=== PATIENT | female | born 1955 | race Hispanic/Latino ===

== ENCOUNTER 2018-10-18 13:20 | Inpatient (IN) | payer MEDICAID ==
[~2018-10-18] VITALS: Ht 152.4 cm; Wt 75.9 kg
[2018-10-18 14:07] LABS: ALBUMIN 2.5 g/dL (3.5-5.0); BILIRUBIN,TOTAL 0.9 mg/dL (0.2-1.0); CREATININE 1.6 mg/dL (0.5-1.5); POTASSIUM 4.7 mmol/L (3.5-5.1); TOTAL PROTEIN, SERUM 6.5 g/dL (6.0-8.3)
[2018-10-18 14:10] LABS: BASOPHILS % (AUTO) 0.3 % (0.0-5.0); LYMPHOCYTES % (AUTO) 2.6 % (21.0-51.0); MEAN CORPUSCULAR HGB CONC 34.1 g/dL (32.0-36.0); MEAN CORPUSCULAR VOLUME 87.8 fL (79-99); MONOCYTES % (AUTO) 2.6 % (3.0-13.0); NEUTROPHILS % (AUTO) 94.5 % (40.0-77.0); PLATELET COUNT (AUTO) 118 K/uL (130-400); RED BLOOD CELL COUNT(AUTO) 3.53 MIL/uL (4.00-5.50); RED CELL DISTRIBUTION WIDTH 13.2 % (11.0-15.5); WHITE BLOOD COUNT (AUTO) 2.5 K/uL (4.8-10.8)
[2018-10-18] MEDS ORDERED: SODIUM CHLORIDE 0.9% 1000ML 1,000 ML IV ONE ×3 (14:21→17:43)
[2018-10-18] MEDS ORDERED: ACETAMINOPHEN 650 MG SUPPOSITORY RC ONE (14:37)
[2018-10-18 14:51] LABS: BAND NEUTROPHILS % (MANUAL) 13 % (0-2); BASOPHILS % (MANUAL) 1 % (0-2); LYMPHOCYTES % (MANUAL) 4 % (22-44); MONOCYTES % (MANUAL) 1 % (2-9); SEGMENTED NEUTROPHILS % 81 % (40-70)
[2018-10-18 14:52] LABS: PLATELET MORPHOLOGY COMMENT SLIGHTLY DECREASED
[2018-10-18 15:26] LABS: APPEARANCE,URINE Turbid (CLEAR); BILIRUBIN,URINE Negative (NEGATIVE); COLOR,URINE Yellow (YELLOW); GLUCOSE, URINE (UA) Negative (NEGATIVE); KETONES,URINE Negative (NEGATIVE); LEUKOCYTE ESTERASE ,URINE Negative (NEGATIVE); NITRATE,URINE Negative (NEGATIVE); OCCULT BLOOD,URINE Negative (NEGATIVE); PROTEIN,URINE POS 1+ mg/dL (NEGATIVE)
[2018-10-18 16:02] LABS: RBC,URINE None Seen /HPF (0-1); WBC,URINE 0-1 /HPF (0-1)
[2018-10-18 16:03] LABS: AMORPHOUS SEDIMENT,UR Many /LPF (None Seen); BACTERIA,URINE Moderate /HPF (None Seen); SQUAMOUS EPITHELIAL CELL,UR 0-2 /HPF (0-2)
[2018-10-18] MEDS: SODIUM CHLORIDE 0.9% 1000ML 1,000 ML IV SCH (16:37)
[2018-10-18] MEDS ORDERED: HYDRALAZINE HCL 20 MG/ML VIAL IV PRN (16:45)
[2018-10-18] MEDS ORDERED: ACETAMINOPHEN 325 MG TAB PO PRN (16:45)
[2018-10-18] MEDS ORDERED: ONDANSETRON HCL 4 MG/2 ML VIAL IV PRN (16:45)
[2018-10-18 17:22] LABS: AMPHET/METH SCREEN,URINE NEGATIVE (NEGATIVE); BARBITURATE SCREEN, URINE NEGATIVE (NEGATIVE); BENZODIAZEPINES SCREEN,URINE NEGATIVE (NEGATIVE); CANNABINOID SCREEN,URINE NEGATIVE (NEGATIVE); COCAINE SCREEN,URINE NEGATIVE (NEGATIVE); OPIATE SCREEN,URINE NEGATIVE (NEGATIVE); PHENCYCLIDINE SCREEN,URINE NEGATIVE (NEGATIVE)
[2018-10-18 17:24] LABS: HEMOGLOBIN A1C 7.8 % (4.0-6.0)
[2018-10-18] MEDS ORDERED: CEFTRIAXONE SODIUM 1 GM ONE (17:26)
[2018-10-18 17:28] LABS: MAGNESIUM 1.5 mg/dL (1.80-2.40)
[2018-10-18] MEDS ORDERED: SODIUM CHLORIDE 0.9% 100 ML IV ONE (17:28)
[2018-10-18] MEDS ORDERED: MAGNESIUM 2GM PREMIX 50ML 50 ML IV ONE (17:43)
[2018-10-18] MEDS ORDERED: POTASSIUM BICARB/CIT AC 25 MEQ TABLET.EFF ONE (18:10)
[2018-10-18] MEDS ORDERED: ACETAMINOPHEN 325 MG TAB ONE (19:50)
[2018-10-18 20:28] VITALS: BP 107/67
[2018-10-18] MEDS ORDERED: DEXTROSE 50%-WATER 50 ML DISP.SYRIN IV ONE (20:50)
--- NOTE | 2018-10-18 20:54 | NUR ---
Pt. appears lethargic and blood sugar checked 46 and D50 IV given
[2018-10-18] MEDS ORDERED: CEFTRIAXONE SODIUM 1 GM IV SCH (21:00)
[2018-10-18] MEDS ORDERED: MAGNESIUM 2GM PREMIX 50ML 50 ML IV SCH (21:00)
--- NOTE | 2018-10-18 21:27 | NUR ---
Rechecked blood sugar =167 and MOLDER FOAM RUBBER FRANCOISE came and saw the pt.
[2018-10-18] MEDS ORDERED: DEXTROSE 50%-WATER 50 ML DISP.SYRIN IV PRN (21:45)
[2018-10-18] MEDS ORDERED: GLUCAGON 1MG KIT 1 MG ML IM PRN (21:45)
[2018-10-18] MEDS ORDERED: LISI30TA4 PO (23:39)
[2018-10-18] MEDS ORDERED: PRAV20TA4 PO (23:39)
[2018-10-18] MEDS ORDERED: LEVO75TA10 PO (23:39)
[2018-10-19] VITALS (8 sets, daily range): BP systolic 83–116; BP diastolic 50–77
[2018-10-19] MEDS: SODIUM CHLORIDE 0.9% 1000ML 1,000 ML IV SCH ×2 (02:37→14:59)
[2018-10-19] MEDS: ACETAMINOPHEN 325 MG TAB PO PRN ×2 (04:21→11:59)
--- NOTE | 2018-10-19 05:24 | NUR ---
ESAU Petty was called and notified regarding pt low BP 83/54mmHg.Received new ordfer
[2018-10-19] MEDS ORDERED: SODIUM CHLORIDE 0.9% 500ML 500 ML IV SCH (05:30)
--- NOTE | 2018-10-19 06:36 | NUR ---
Rechecked b/s was Rechecked after D50 iv given was 182
--- NOTE | 2018-10-19 07:50 | NUR ---
ASSESSMENT ENCOUNTERED PT A&OX3, CALM COOPERATIVE AND DOES NOT APPEAR TO BE IN ANY DISTRESS NOR ANY NEURO DEFICITS PRESENT. PT DENIES PAIN, SOB, NAUSEA BUT DOES C/O GENERALIZED BODY WEAKNESS, INTERMITTENT CHILLS AND FEVER. PT TO REMAIN IN BEDREST. PT IS ABLE TO TOLERATE FOODS, FLUIDS AND MEDICATIONS WITH NO THROAT CLEARING OR COUGH. CALL LIGHT WITHIN REACH, FAMILY AT BEDSIDE.
[2018-10-19] MEDS ORDERED: VANCOMYCIN PROTOCOL PER PHARMACY IV SCH (11:30)
[2018-10-19] MEDS ORDERED: SODIUM CHLORIDE 0.9% 1000ML 1,000 ML IV SCH (11:30)
[2018-10-19] MEDS: MEROPENEM 1 GM VIAL IVP SCH ×2 (11:58→20:53)
[2018-10-19] MEDS: VANCOMYCIN 1GM+NS 250ML 250 ML IV SCH (11:58)
--- NOTE | 2018-10-19 14:50 | NUR ---
[facility] met with pt and Geoffrey [phone]. Pt reports prior to admission she was independent of all ADLS, no DME or HH. Pt states she is taking chemo for breast cancer with Dr Nogueira and is very sick after each treatment. Pt states she may need more help after discharge. Pt states she knows what her option is if she stops treatment, but states she feels pretty bad after treatments. SW provided emotional support. [place]. CM to follow and assist as needed Addendum: 10/19/18 at 1454 by SUNITA LUNA Amended: Links added.
[2018-10-19] MEDS: FAMOTIDINE/PF 20 MG/2 ML VIAL IV SCH (14:51)
[2018-10-19] MEDS: ENOXAPARIN SODIUM 40 MG/0.4 ML SYRINGE SQ SCH (14:58)
[2018-10-20] VITALS: BP 112/63
[2018-10-20] MEDS: SODIUM CHLORIDE 0.9% 1000ML 1,000 ML IV SCH ×2 (01:00→22:27)
[2018-10-20 04:00] VITALS: BP 102/60
[2018-10-20] MEDS: MEROPENEM 1 GM VIAL IVP SCH ×3 (04:02→17:43)
[2018-10-20 07:00] VITALS: BP 90/58
[2018-10-20] MEDS: ENOXAPARIN SODIUM 40 MG/0.4 ML SYRINGE SQ SCH (09:37)
[2018-10-20] MEDS: FAMOTIDINE/PF 20 MG/2 ML VIAL IV SCH (09:37)
[2018-10-20 10:50] VITALS: BP 124/77
[2018-10-20] MEDS: VANCOMYCIN 1GM+NS 250ML 250 ML IV SCH (10:51)
[2018-10-20] MEDS ORDERED: FUROSEMIDE 10 MG/ML 4ML VIAL IV SCH (11:00)
[2018-10-20] MEDS ORDERED: MORPHINE SULFATE 2 MG/ML 1ML SYG IVP ONE (11:00)
--- NOTE | 2018-10-20 11:00 | NUR ---
NOTIFIED BY LIBRARY SALES CONSULTANT PT'S HEART RATE AT 140-150, SINUS TACH. EKG RAN TO CONFIRM RHYTHM. PT BP AT THE TIME 156/99, O2 SAT 100% 2L NC, PT STATES SHE FELT CHILLS. TEMP AT THE TIME 98.5. DR. DAVE MADE AWARE, NEW ORDERS RECEIVED THAT WERE CARRIED OUT. REFER TO [facility] FOR INTERVENTION.
[2018-10-20] MEDS: METOPROLOL TARTRATE 1 MG/ML 5ML VIAL IV SCH ×3 (11:17→23:00)
--- NOTE | 2018-10-20 12:00 | NUR ---
ROUNDS DR. BROWN IN TO SEE PATIENT. MD UPDATED ON STATUS AND NEW ORDERS. FOLLOW-UP ON METOPROLOL 5MG IV ADMINISTRATION: HR ST 120s. NO FEVER NOTED, PT STATES SHE FEELS BETTER AT THIS TIME. PT'S DAUGHTER WITH CONCERNS REGARDING CHEMOTHERAPY AND WHAT STAGE IS PATIENT'S CANCER AT. I INFORMED HER THAT WHILE PATIENT IS IN HOSPITAL, SHE WILL NOT BE RECEIVING CHEMOTHERAPY. SHE WILL NEED TO FOLLOW UP WITH DR. BROWN UPON DISCHARGE TO DISCUSS FURTHER POC REGARDING HER CHEMOTHERAPY. BOTH PATIENT AND DAUGHTER VOICED AGREEMENT.
[2018-10-20 12:53] LABS: EOSINOPHILS % (AUTO) 0.4 % (0.0-8.0); HEMATOCRIT 27.2 % (36-48); LYMPHOCYTES % (AUTO) 6.9 % (21.0-51.0); MEAN CORPUSCULAR HEMOGLOBIN 30.3 pg (27.0-33.0); MEAN CORPUSCULAR HGB CONC 33.7 g/dL (32.0-36.0); MEAN CORPUSCULAR VOLUME 89.9 fL (79-99); MONOCYTES % (AUTO) 8.3 % (3.0-13.0); NEUTROPHILS % (AUTO) 83.4 % (40.0-77.0); PLATELET COUNT (AUTO) 119 K/uL (130-400); RED BLOOD CELL COUNT(AUTO) 3.02 MIL/uL (4.00-5.50); RED CELL DISTRIBUTION WIDTH 13.9 % (11.0-15.5); WHITE BLOOD COUNT (AUTO) 2.1 K/uL (4.8-10.8)
[2018-10-20 12:57] LABS: ALBUMIN 1.8 g/dL (3.5-5.0); CREATININE 1.8 mg/dL (0.5-1.5); MAGNESIUM 1.8 mg/dL (1.80-2.40); PHOSPHORUS 2.2 mg/dL (2.5-4.9); POTASSIUM 4.4 mmol/L (3.5-5.1)
[2018-10-20 13:14] LABS: BAND NEUTROPHILS % (MANUAL) 6 % (0-2); EOSINOPHILS % (MANUAL) 1 % (1-6); LYMPHOCYTES % (MANUAL) 8 % (22-44); MAN.DIFF COMMENT-IMPRESSION MANUAL DIFFERENTIAL; MONOCYTES % (MANUAL) 13 % (2-9); PLATELET MORPHOLOGY COMMENT SLIGHTLY DECREASED; SEGMENTED NEUTROPHILS % 72 % (40-70)
--- NOTE | 2018-10-20 13:15 | NUR ---
RD Notification Pt admitted for Hypoglycemia. Pt current BG 324. Pt with no noted complaint of GI distress. Pt with good PO intake at 100%. Pt monitored labs: Glu 324, Cl 89, Cr 1.6, BUN 31, GFR 35, Ca 7.7, AST 304, ALT 278, Alk 29, Alb 2.5. RD to continue to monitor. Please notify RD as additional nutrition concerns arise. Thank you. Addendum: 10/20/18 at [address] RD Amended: Links added.
[2018-10-20 16:00] VITALS: BP 113/62
[2018-10-20 19:07] VITALS: BP 93/62
[2018-10-20] MEDS: DOXYCYCLINE 100MG+NS 250ML 250 ML IV SCH (22:27)
[2018-10-21 00:07] VITALS: BP 107/65
[2018-10-21] MEDS: ACETAMINOPHEN 325 MG TAB PO PRN (02:40)
[2018-10-21] MEDS: MEROPENEM 1 GM VIAL IVP SCH ×3 (03:30→20:29)
[2018-10-21 04:39] VITALS: BP 100/59
[2018-10-21 04:52] LABS: BASOPHILS % (AUTO) 0.9 % (0.0-5.0); EOSINOPHILS % (AUTO) 0.2 % (0.0-8.0); HEMATOCRIT 26.4 % (36-48); LYMPHOCYTES % (AUTO) 17.8 % (21.0-51.0); MEAN CORPUSCULAR HEMOGLOBIN 29.6 pg (27.0-33.0); MEAN CORPUSCULAR HGB CONC 33.3 g/dL (32.0-36.0); MEAN CORPUSCULAR VOLUME 88.9 fL (79-99); NEUTROPHILS % (AUTO) 74.1 % (40.0-77.0); NUCLEATED RED BLOOD CELLS 0.1 % (0.0-0.19); PLATELET COUNT (AUTO) 138 K/uL (130-400); RED BLOOD CELL COUNT(AUTO) 2.97 MIL/uL (4.00-5.50); RED CELL DISTRIBUTION WIDTH 14.3 % (11.0-15.5)
[2018-10-21] MEDS: METOPROLOL TARTRATE 1 MG/ML 5ML VIAL IV SCH ×4 (05:00→23:47)
[2018-10-21 05:04] LABS: B-TYPE NATRIURETIC PEPTIDE 149 pg/mL (0-100)
[2018-10-21 05:24] LABS: ALBUMIN 1.6 g/dL (3.5-5.0); BILIRUBIN,TOTAL 0.9 mg/dL (0.2-1.0); TOTAL PROTEIN, SERUM 4.8 g/dL (6.0-8.3)
[2018-10-21] MEDS: SODIUM CHLORIDE 0.9% 1000ML 1,000 ML IV SCH ×2 (06:19→16:19)
[2018-10-21 07:45] VITALS: BP 94/60
[2018-10-21] MEDS ORDERED: DIATR MEGLU/DIATRIZOATE SODIUM 30 ML BOTTLE ONE (09:37)
[2018-10-21] MEDS: DOXYCYCLINE 100MG+NS 250ML 250 ML IV SCH ×2 (10:39→20:29)
[2018-10-21] MEDS: ENOXAPARIN SODIUM 40 MG/0.4 ML SYRINGE SQ SCH (10:39)
[2018-10-21] MEDS: FAMOTIDINE/PF 20 MG/2 ML VIAL IV SCH (10:39)
[2018-10-21 11:45] VITALS: BP 105/69
[2018-10-21] MEDS: VANCOMYCIN 1GM+NS 250ML 250 ML IV SCH ×2 (14:10→16:55)
--- NOTE | 2018-10-21 15:14 | NUR ---
Dr. Holliday rounding at bedside. Bladder scan done showing 872ml of urine. New VO to insert lee cath for urine retention.
[2018-10-21 16:00] VITALS: BP 130/82
[2018-10-21] MEDS ORDERED: COMPOUND IV REFRIGERATED 1 EACH IVSOLN MISC PRN (18:00)
[2018-10-21] MEDS: VANCOMYCIN 1.25 GM in SODIUM CHLORIDE 0.9% 250 ML IV SCH (18:09)
[2018-10-21 18:35] LABS: CREATININE,URINE RANDOM 39 mg/dL (30-135); SODIUM,URINE RANDOM 16 mmol/l (40-220)
--- NOTE | 2018-10-21 19:40 | NUR ---
Received report pt is going to medical surgical floor.HR in the 112.Plaxced call to ESAU Lorenzana and updated him with pt. HR and pt is on Lopressor IV and will be going to medical floor with no monitor.He ordered to hold transfer for now.Transportation Equipment Painter was called and updated with new order
[2018-10-21] MEDS: INSULIN GLARGINE 100 UNITS/ML 10 ML VIAL SQ SCH (22:12)
--- NOTE | 2018-10-21 23:06 | NUR ---
Dr. Holliday here and as per house Superviosr pt is going to room 318.Report given to nurse Junior using SBAr. All questions answered.
--- NOTE | 2018-10-21 23:07 | NUR ---
Pt. moved to room 318 via bed accompanied by staff and pt. .Pt. remained stable.
--- NOTE | 2018-10-21 23:10 | NUR ---
Pt arrived to room via bed from room 232. Awake and responsive , but looking weak. Has an IVF NS 1L at 100 cc / hr # 20 gauge to LFA - patent and intact. Han Catheter #16 Fr. patently draining a clear dark yellow urine. Patient with Tele verified in Sinus rhythm. Plan of care continued. Kept watched and observed for any unusualities. Cared for and needs attended. Distress / discomfort not noted.
[2018-10-22] VITALS (7 sets, daily range): BP systolic 109–140; BP diastolic 68–94
[2018-10-22] MEDS: MEROPENEM 1 GM VIAL IVP SCH ×3 (03:08→18:22)
[2018-10-22] MEDS: SODIUM CHLORIDE 0.9% 1000ML 1,000 ML IV SCH ×3 (03:09→22:24)
[2018-10-22] MEDS: METOPROLOL TARTRATE 1 MG/ML 5ML VIAL IV SCH ×3 (05:40→18:21)
[2018-10-22 06:33] LABS: BASOPHILS % (AUTO) 0.4 % (0.0-5.0); EOSINOPHILS % (AUTO) 0.3 % (0.0-8.0); LYMPHOCYTES % (AUTO) 28.8 % (21.0-51.0); MEAN CORPUSCULAR HEMOGLOBIN 30.3 pg (27.0-33.0); MEAN CORPUSCULAR HGB CONC 33.7 g/dL (32.0-36.0); MONOCYTES % (AUTO) 6.6 % (3.0-13.0); NEUTROPHILS % (AUTO) 63.9 % (40.0-77.0); PLATELET COUNT (AUTO) 132 K/uL (130-400); RED CELL DISTRIBUTION WIDTH 14.4 % (11.0-15.5); WHITE BLOOD COUNT (AUTO) 5.7 K/uL (4.8-10.8)
[2018-10-22 06:51] LABS: ALBUMIN 1.5 g/dL (3.5-5.0); BILIRUBIN,TOTAL 0.6 mg/dL (0.2-1.0); CREATININE 2.5 mg/dL (0.5-1.5); POTASSIUM 4.1 mmol/L (3.5-5.1); TOTAL PROTEIN, SERUM 4.7 g/dL (6.0-8.3)
[2018-10-22] MEDS: DOXYCYCLINE 100MG+NS 250ML 250 ML IV SCH ×2 (08:54→22:24)
[2018-10-22] MEDS: LINAGLIPTIN 5 MG TABLET PO SCH (09:39)
[2018-10-22] MEDS: FAMOTIDINE/PF 20 MG/2 ML VIAL IV SCH (09:39)
[2018-10-22] MEDS: ENOXAPARIN SODIUM 40 MG/0.4 ML SYRINGE SQ SCH (09:40)
[2018-10-22] MEDS ORDERED: INSULIN HUMULIN R 100 UNIT/ML 3ML SQ SCH (16:30)
[2018-10-22] MEDS ORDERED: DEXTROSE 50%-WATER 50 ML DISP.SYRIN IV PRN (17:45)
[2018-10-22] MEDS ORDERED: GLUCAGON 1MG KIT 1 MG ML IM PRN (17:45)
[2018-10-22] MEDS: VANCOMYCIN 1.25 GM in SODIUM CHLORIDE 0.9% 250 ML IV SCH (18:22)
[2018-10-22] MEDS: INSULIN HUMULIN R 100 UNIT/ML 3ML SQ SCH (22:14)
[2018-10-22] MEDS: INSULIN GLARGINE 100 UNITS/ML 10 ML VIAL SQ SCH (22:16)
[2018-10-23] MEDS: METOPROLOL TARTRATE 1 MG/ML 5ML VIAL IV SCH ×4 (00:18→17:22)
[2018-10-23 03:25] VITALS: BP 115/68
[2018-10-23] MEDS: MEROPENEM 1 GM VIAL IVP SCH ×3 (03:47→17:21)
[2018-10-23] MEDS: INSULIN HUMULIN R 100 UNIT/ML 3ML SQ SCH ×4 (06:01→21:00)
[2018-10-23] MEDS: SODIUM CHLORIDE 0.9% 1000ML 1,000 ML IV SCH ×2 (06:03→17:23)
[2018-10-23 06:18] LABS: HEMATOCRIT 26.6 % (36-48); MEAN CORPUSCULAR HEMOGLOBIN 29.9 pg (27.0-33.0); MEAN CORPUSCULAR HGB CONC 33.6 g/dL (32.0-36.0); PLATELET COUNT (AUTO) 177 K/uL (130-400); RED BLOOD CELL COUNT(AUTO) 2.99 MIL/uL (4.00-5.50); RED CELL DISTRIBUTION WIDTH 14.2 % (11.0-15.5); WHITE BLOOD COUNT (AUTO) 7.7 K/uL (4.8-10.8)
[2018-10-23 06:24] LABS: CREATININE 2.4 mg/dL (0.5-1.5); POTASSIUM 3.7 mmol/L (3.5-5.1)
[2018-10-23 08:00] VITALS: BP 114/63
[2018-10-23] MEDS: DOXYCYCLINE 100MG+NS 250ML 250 ML IV SCH ×2 (08:10→22:18)
[2018-10-23] MEDS: FAMOTIDINE/PF 20 MG/2 ML VIAL IV SCH (08:10)
[2018-10-23] MEDS: ENOXAPARIN SODIUM 40 MG/0.4 ML SYRINGE SQ SCH (08:11)
[2018-10-23] MEDS: LINAGLIPTIN 5 MG TABLET PO SCH (09:00)
[2018-10-23 12:00] VITALS: BP 137/70
[2018-10-23 12:19] VITALS: BP 113/72
[2018-10-23 16:00] VITALS: BP 125/77
[2018-10-23] MEDS: VANCOMYCIN 1.25 GM in SODIUM CHLORIDE 0.9% 250 ML IV SCH (17:23)
[2018-10-23 20:00] VITALS: BP 161/93
[2018-10-23] MEDS ORDERED: NON-FORMULARY MEDICATION 1 EACH (Pravastatin Sodium 20 MG) PO SCH (21:00)
[2018-10-23] MEDS: Pravastatin Sodium 20 MG PO SCH ×2 (21:00→22:14)
[2018-10-23] MEDS: INSULIN GLARGINE 100 UNITS/ML 10 ML VIAL SQ SCH (22:22)
[2018-10-24] VITALS: BP 142/82
[2018-10-24] MEDS: METOPROLOL TARTRATE 1 MG/ML 5ML VIAL IV SCH ×5 (00:45→23:21)
[2018-10-24 04:00] VITALS: BP 144/75
[2018-10-24] MEDS: MEROPENEM 1 GM VIAL IVP SCH ×3 (04:34→17:44)
[2018-10-24] MEDS: SODIUM CHLORIDE 0.9% 1000ML 1,000 ML IV SCH ×3 (04:35→18:46)
[2018-10-24] MEDS: LEVOTHYROXINE 75 MCG TABLET PO SCH (06:18)
[2018-10-24] MEDS: INSULIN HUMULIN R 100 UNIT/ML 3ML SQ SCH ×4 (06:23→21:00)
[2018-10-24 07:00] VITALS: BP 119/71
[2018-10-24] MEDS: FAMOTIDINE/PF 20 MG/2 ML VIAL IV SCH (08:27)
[2018-10-24] MEDS: LINAGLIPTIN 5 MG TABLET PO SCH (08:27)
[2018-10-24] MEDS: DOXYCYCLINE 100MG+NS 250ML 250 ML IV SCH ×2 (08:27→22:54)
[2018-10-24] MEDS: ENOXAPARIN SODIUM 40 MG/0.4 ML SYRINGE SQ SCH (08:36)
[2018-10-24 11:00] VITALS: BP 131/78
[2018-10-24 16:00] VITALS: BP 148/75
[2018-10-24 16:09] LABS: ROCKY MT SPOTTED FEVER IGG <1:64 (Neg:<1:64)
--- NOTE | 2018-10-24 17:57 | NUR ---
GEORGE CATHETER Removed as ordered after 10mL of clear liquid removed from bulb; patient tolerated removal of catheter with no problems. Due to void at 0400. Addendum: 10/24/18 at 1800 by AUDREY NOBLE RN RN Addendum: clarification for due to void time, it is at midnight.
[2018-10-24] MEDS: VANCOMYCIN 1.25 GM in SODIUM CHLORIDE 0.9% 250 ML IV SCH (18:45)
[2018-10-24 20:00] VITALS: BP 141/75
[2018-10-24] MEDS: Pravastatin Sodium 20 MG PO SCH (21:00)
[2018-10-24] MEDS: INSULIN GLARGINE 100 UNITS/ML 10 ML VIAL SQ SCH (22:56)
[2018-10-25] VITALS: BP 128/69
[2018-10-25 04:00] VITALS: BP 123/67
[2018-10-25] MEDS: MEROPENEM 1 GM VIAL IVP SCH (06:19)
[2018-10-25] MEDS: LEVOTHYROXINE 75 MCG TABLET PO SCH (06:19)
[2018-10-25] MEDS: SODIUM CHLORIDE 0.9% 1000ML 1,000 ML IV SCH (06:19)
[2018-10-25] MEDS: METOPROLOL TARTRATE 1 MG/ML 5ML VIAL IV SCH (06:19)
[2018-10-25] MEDS: INSULIN HUMULIN R 100 UNIT/ML 3ML SQ SCH (06:20)
[2018-10-25 07:00] VITALS: BP 130/74
[2018-10-25] MEDS: LINAGLIPTIN 5 MG TABLET PO SCH (08:53)
[2018-10-25] MEDS: FAMOTIDINE/PF 20 MG/2 ML VIAL IV SCH (08:53)
[2018-10-25] MEDS: ENOXAPARIN SODIUM 40 MG/0.4 ML SYRINGE SQ SCH (08:53)
[2018-10-25] MEDS: DOXYCYCLINE 100MG+NS 250ML 250 ML IV SCH (08:53)
[2018-10-25] MEDS ORDERED: METO25TA6 PO (09:43)
[2018-10-25] MEDS ORDERED: HEPARIN SODIUM/PF 100UNIT/ML 5ML SYRINGE IV SCH (13:30)
--- NOTE | 2018-10-25 15:30 | NUR ---
MPOA: Pt and family requesting information regarding [facility]PO[facility]. Forms completed and signed. Primary nurse updated.
== END 2018-10-25 18:15 | disposition home or self-care (01) | DRG 720 ==
LOC: EDBD 13:20 → EDH 13:20 → EDHIP 13:21 → 2AH 20:28 → 3CH 10-21 23:53
PROVIDERS: ADMIT Internal Medicine; ATTEND Internal Medicine
DX: A41.9 Sepsis, unspecified organism (principal); D61.818 Other pancytopenia; G93.41 Metabolic encephalopathy; E44.0 Moderate protein-calorie malnutrition; N17.9 Acute kidney failure, unspecified; T45.1X5A Adverse effect of antineoplastic and immunosuppressive drugs, initial encounter; R65.20 Severe sepsis without septic shock; E11.649 Type 2 diabetes mellitus with hypoglycemia without coma; N39.0 Urinary tract infection, site not specified; C50.919 Malignant neoplasm of unspecified site of unspecified female breast; R74.0 Nonspecific elevation of levels of transaminase and lactic acid dehydrogenase [LDH]; E11.22 Type 2 diabetes mellitus with diabetic chronic kidney disease; I12.9 Hypertensive chronic kidney disease with stage 1 through stage 4 chronic kidney disease, or unspecified chronic kidney disease; I42.9 Cardiomyopathy, unspecified; N18.9 Chronic kidney disease, unspecified; Z90.11 Acquired absence of right breast and nipple; Z68.32 Body mass index [BMI] 32.0-32.9, adult; Y92.89 Other specified places as the place of occurrence of the external cause; Z83.3 Family history of diabetes mellitus
CPT/HCPCS: 36415; 70450; 71045; 71046; 74176; 76705; 78227; 80048; 80053; 80202; 80305; 81001; 82040; 82140; 82550; 82570; 82948; 83036; 83605; 83735; 83880; 84100; 84300; 84443; 84484; 85025; 85027; 86757; 87040; 87088; 93005; 97039; A4344; A9537; G0378; G0480; J0696; J1642; J1650; J1815; J1940; J2185; J3370; J3475; J3490; J7030; J7040; J7070; Q9963